=== PATIENT | female | born 1955 | race Caucasian/White ===

== ENCOUNTER → 2016-11-06 | Outpatient (CLI) | payer BC ==
--- NOTE | 2016-11-07 11:42 | MG ---
HISTORY: SCREENING Comparison: 10/26/14 FINDINGS: Bilateral CC and MLO projections of the right and left breast were obtained. Heterogeneously dense fibroglandular tissue is seen to be present without significant interval change. No suspicious arch itectural distortion, mass or clustered microcalcifications can be observed to suggest malignancy. No skin thickening or nipple retraction is appreciated. No pathological lymphadenopathy can be darien ntified. Benign-appearing calcifications are noted within the right and left breast. IMPRESSION: NO RADIOGRAPHIC EVIDENCE OF MALIGNANCY. ACR CATEGORY 2 - benign findings. FOLLOW-UP EXAM 1 YEAR. Diagnostic CAD was utilized and reviewed. * 0 (ZERO) - ASSESSMENT INCOMPLETE; ADDITIONAL IMAGING IS NEEDED. * 1/1 (ONE) - NEGATIVE. * 2/II (TWO) - BENIGN FINDINGS. * 3/III (THREE) - PROBABLY BENIGN FINDING; SHORT INTERVAL FOLLOW-UP SUGGESTED. * 4/IV (FOUR) - SUSPICIOUS ABNORMALITY; BIOPSY SHOULD BE CONSIDERED. * 5/V (FIVE) - HIGHLY SUSPICIOUS OF MALIGNANCY; BIOPSY SHOULD BE PERFORMED. A NEGATIVE X-RAY REPORT SHOULD NOT DELAY BIOPSY IF A DOMINANT OR CLINICALLY SUSPICIOUS MASS IS PRESENT; 4 TO 8 PERCENT OF CANCERS ARE NOT IDENTIFIED BY X-RAY. A NEG ATIVE REPORT MAY REINFORCE THE CLINICAL IMPRESSION. ADENOSIS AND DENSE BREASTS MAY OBSCURE AN UNDER LYING NEOPLASM. Reported By:
== END ==
LOC: RAD 13:41
PROVIDERS: ATTEND Nurse Practitioner Family
DX: Z12.31 Encounter for screening mammogram for malignant neoplasm of breast (principal)
CPT/HCPCS: 77067

== ENCOUNTER 2021-06-13 14:40 | Inpatient (IN) ==
--- NOTE | 2021-06-13 14:52 | DR.SOBA ---
HPI Time Seen Time Seen by Provider: 06/13/21 14:59 Complaints Chief Complaint Doctors Comments: 66 y/o female presents not feeling well for several days. Has a h/o multiple myeloma, diagnosed 2 years ago. Had a bone marrow transfusion last year. Was doing well for a bit. Going downhill last few weeks. Reportedly in kidney failure, sees strip machine tender at [place], not on dialysis. Has a cough, productive, treated with azithromycin. + short of breath with exertion. No fever, cold frequently. + h/o anemia. Having generalized weakness. No bowel/bladder complaints. COVID-19 Coronavirus risk:travel/contact w/high risk person: No Has patient experienced Coronavirus symptoms: Yes Coronavirus symptoms experienced: Coughing Reviewed Nurses Notes Reviewed: Yes Source History Provided: Patient and Family Member Mode of Arrival Mode of Arrival: Wheelchair PMH Travel Risk Coronavirus risk:travel/contact w/high risk person: No Has patient experienced Coronavirus symptoms: Yes Coronavirus symptoms experienced: Coughing ROS Review of Systems Constitutional: Malaise and Weakness Eyes: No Symptoms Reported ENTM: No Symptoms Reported Respiratoy: Productive Cough and Short of Breath Cardiovascular: No Symptoms Reported Gastrointestinal/Abdominal: No Symptoms Reported Genitourinary: No Symptoms Reported Neurological: Weakness Musculoskeletal: No Symptoms Reported Integumentary: No Symptoms Reported Hematologic/Lymphatic: No Symptoms Reported Psychiatric: No Symptoms Reported All Other Systems: Reviewed and Negative PE Vital Signs Vitals: Temperature 97.6 F Pulse Rate [Left Radial] 68 Pulse Rate 66 Respiratory Rate 21 Blood Pressure [Left Arm] 105/46 Blood Pressure 110/52 O2 Sat by Pulse Oximetry 91 General Limitations: No Limitations General Appearance: Alert and In No Apparent Distress Head Head Exam: Normal Inspection Eyes Eye exam: Normal Appearance and PERRL ENT ENT Exam: Normal Exam Neck Neck Exam: Normal Inspection and Full ROM Chest Chest Inspection: Normal Inspection Respiratory Respiratory Exam: negative Accessory Muscle Use and Respiratory Distress Respiratory Exam: Right: Rales (base) Cardiovascular Cardiovascular Exam: Regular Rate, Normal Rhythm and Normal Heart Sounds Abdominal Exam Abdominal Exam: Normal Inspection, Normal Bowel Sounds and Soft; negative Tenderness Extremities Extremities Exam: Normal Inspection and Full ROM; negative Tenderness and Edema Back Back Exam: Normal Inspection Neurologic Neurological Exam: Alert, Oriented X3 and CN II-XII Intact; negative Motor Sensory Deficit Psychiatric Psychiatric Exam: Normal Affect Skin Skin Exam: Warm and Dry MDM Differential Diagnosis Differential Diagnosis: Bronchitis, CHF, Mycardial Infarction and Pneumonia Differential Diagnosis Comment:: anemia, kidney disease COURSE Treatment Treatment: 66 y/o female with worsening weakness, exertional dyspnea, h/o multiple myeloma, anemia. W/u initiated. 1541 - + CXR c/w pneumonia on the R side. Given IV Rocephin. Covid/Flu swabs obtained, will plan on admission. 1744 - discussed with Dr Encsio, accepts the admission. Will add Invanz for antibiotic coverage, decreased dosing due to renal disease. ROR Labs Reviewed Laboratory Results Reviewed?: Yes Result Diagrams: 06/13/21 16:15 06/13/21 14:55 Laboratory: WBC 1.0 X10^3/uL (3.6-10.0) L* 06/13/21 16:15 RBC 1.92 X10^6/uL (3.5-5.4) L 06/13/21 16:15 Hgb 6.9 g/dL (12.0-16.0) L* 06/13/21 16:15 Hct 20.2 % (36.0-47.0) L 06/13/21 16:15 MCV 104.9 fL (80.0-100.0) H 06/13/21 16:15 MCH 35.7 pg (27.0-34.0) H 06/13/21 16:15 MCHC 34.0 g/dL (33.0-35.0) 06/13/21 16:15 RDW 19.3 % (11.6-16.5) H 06/13/21 16:15 Plt Count 26 X10^3/uL (150.0-450.0) L 06/13/21 16:15 Plt Count Comment Decreased (ADEQUATE) A 06/13/21 16:15 MPV 9.3 fL (7.4-11.0) 06/13/21 16:15 Neut % (Auto) 46.4 % (42.0-75.0) 06/13/21 16:15 Lymph % (Auto) 49.5 % (21.0-51.0) 06/13/21 16:15 [place] % (Auto) 3.7 % (0.0-13.0) 06/13/21 16:15 Eos % (Auto) 0.0 % (0.9-2.9) L 06/13/21 16:15 Baso % (Auto) 0.4 % (0.2-1.0) 06/13/21 16:15 Neut # (Auto) 0.5 x10^3/uL (2.2-4.8) L 06/13/21 16:15 Lymph # (Auto) 0.5 X10^3/uL (1.3-2.9) L 06/13/21 16:15 [place] # (Auto) 0 x10^3/uL (0.3-0.8) L 06/13/21 16:15 Eos # (Auto) 0.0 x10^3/uL (0.0-0.2) 06/13/21 16:15 Baso # (Auto) 0.0 X10^3/uL (0.0-0.1) 06/13/21 16:15 Absolute Nucleated RBC 0.1 /100WBC 06/13/21 16:15 Plt Morphology Comment Normal (NORMAL) 06/13/21 16:15 RBC Morphology Normal (NORMAL) 06/13/21 16:15 Sample Site Rb 06/13/21 15:31 ABG pH 7.390 (7.35-7.45) 06/13/21 15:31 ABG pCO2 27.0 mmHg (35.0-45.0) L 06/13/21 15:31 ABG pO2 59.0 mmHg (80.0-100.0) L 06/13/21 15:31 ABG HCO3 16.3 mmol/L (22-26) L* 06/13/21 15:31 ABG O2 Saturation 90.0 % (90-100) 06/13/21 15:31 ABG Base Excess -7.2 mmol/L (-2.0-2.0) L 06/13/21 15:31 Gamaliel Test Na 06/13/21 15:31 A-a Gradient 135.0 mmHg 06/13/21 15:31 FiO2 32.0 06/13/21 15:31 Blood Gas Comments Humberto well cb 06/13/21 15:31 Sodium 134 mmol/L (136-145) L 06/13/21 14:55 Corrected Sodium 135 mmol/L (136-145) L 06/13/21 14:55 Potassium 4.1 mmol/L (3.5-5.1) 06/13/21 14:55 Chloride 102 mmol/L (98-107) 06/13/21 14:55 Carbon Dioxide 18.3 mmol/L (21-32) L 06/13/21 14:55 BUN 37 mg/dL (7-18) H 06/13/21 14:55 Creatinine 4.68 mg/dL (0.55-1.02) H 06/13/21 14:55 Est GFR (MDRD) Af Amer 12 (>60) L 06/13/21 14:55 Est GFR (MDRD) Non-Af 10 (>60) L 06/13/21 14:55 Glucose 127 mg/dL (65-99) H 06/13/21 14:55 Lactic Acid 3.1 mmol/L (0.4-2.0) H 06/13/21 14:55 Calcium 7.3 mg/dL (8.5-10.1) L 06/13/21 14:55 Corrected Calcium 8.5 mg/dL (8.5-10.1) 06/13/21 14:55 Total Bilirubin 0.30 mg/dL (0.2-1.0) 06/13/21 14:55 AST 29 Units/L (15-37) 06/13/21 14:55 ALT 15 Units/L (12-78) 06/13/21 14:55 Alkaline Phosphatase 118 Units/L (46-116) H 06/13/21 14:55 Creatine Kinase 172 Units/L (26-192) 06/13/21 14:55 CK-MB (CK-2) 1.9 ng/mL (0-4.0) 06/13/21 14:55 CK/CKMB % Calc 1.1 % (<4) 06/13/21 14:55 Troponin I 0.02 ng/mL (0-1.5) 06/13/21 14:55 Total Protein 6.1 g/dL (6.4-8.2) L 06/13/21 14:55 Albumin 2.5 g/dL (3.4-5.0) L 06/13/21 14:55 Globulin 3.6 g/dL (2.5-4.5) 06/13/21 14:55 Albumin/Globulin Ratio 0.7 Ratio (1.1-2.1) L 06/13/21 14:55 SARS-CoV-2 (PCR) Negative (NEGATIVE) 06/13/21 16:02 Influenza Type A (PCR) Negative (NEGATIVE) 06/13/21 16:02 Influenza Type B (PCR) Negative (NEGATIVE) 06/13/21 16:02 RSV (PCR) Negative (NEGATIVE) 06/13/21 16:02 XRAY XRAY Interpreted by: Both X-ray Results: + R sided increased markings c/w pneumonia EKG Rate: 68 [place]: Normal Rhythm: NSR Block: None Hypertrophy: None ST: Normal Opioid Opioid Risk Tool Age (Brando box if 16-45): No History of Preadolescent Sexual Abuse: No Total: 0 Total Score Risk Category: Low Risk Copyright: Emanuel MENDES predicting aberrant behaviors Diagnosis Discharge Problem: Pancytopenia Pneumonia involving right lung Qualifiers: Pneumonia type: due to unspecified organism Lung location: unspecified part of lung Qualified Code(s): J18.9 - Pneumonia, unspecified organism Chronic kidney disease Qualifiers: Chronic kidney disease stage: unspecified stage Qualified Code(s): N18.9 - Chronic kidney disease, unspecified
[2021-06-13 15:18] LABS: BASOPHILS % (AUTO) 0.4 % (0.2-1.0); HEMATOCRIT 20.2 % (36.0-47.0); PLATELET COUNT 26 X10^3/uL (150.0-450.0)
--- NOTE | 2021-06-13 15:23 | RAD ---
HISTORYSOB renal disease myelomaSTUDYAP chestCOMPARISONNoneFINDINGSThe heart is not significantly enlarged. There are areas of patchy airspace involvement, right lung greater than left. No discrete mass, pleural fluid or extrapulmonary air collection is noted.IMPRESSIONPatchy areas of pulmonary involvement are consistent with pneumonia, less likely asymmetric pulmonary edema. Follow-up suggested.Electronically signed by: JULIA KONG (Jun 13, 2021 15:21:18)
[2021-06-13 15:36] LABS: ABG BASE EXCESS -7.2 mmol/L (-2.0-2.0); ABG HCO3 16.3 mmol/L (22-26)
[2021-06-13] MEDS ORDERED: ROCEPHIN 1 GRAM IV PREMIX 1 G/50 ML IV.SOLN. IV ONE ×2 (15:39→16:12)
[2021-06-13 15:43] LABS: LACTIC ACID 3.1 mmol/L (0.4-2.0)
[2021-06-13 15:50] LABS: ALBUMIN 2.5 g/dL (3.4-5.0); CALCIUM 7.3 mg/dL (8.5-10.1); CARBON DIOXIDE 18.3 mmol/L (21-32); CKMB % 1.1 % (<4); COR CA(FOR HYPOALB) 8.5 mg/dL (8.5-10.1); CREATINE KINASE MB 1.9 ng/mL (0-4.0); CREATININE 4.68 mg/dL (0.55-1.02); TOTAL PROTEIN 6.1 g/dL (6.4-8.2); TROPONIN I 0.02 ng/mL (0-1.5)
[2021-06-13 15:56] LABS: LYMPHOCYTES # (AUTO) 0.5 X10^3/uL (1.3-2.9); LYMPHOCYTES % (AUTO) 49.5 % (21.0-51.0); MEAN CORPUSCULAR HEMOGLOBIN 35.7 pg (27.0-34.0); MEAN CORPUSCULAR VOLUME 104.9 fL (80.0-100.0); MEAN PLATELET VOLUME 9.3 fL (7.4-11.0); MONOCYTES # (AUTO) 0 x10^3/uL (0.3-0.8); MONOCYTES % (AUTO) 3.7 % (0.0-13.0); NEUTROPHILS # (AUTO) 0.5 x10^3/uL (2.2-4.8); NEUTROPHILS % (AUTO) 46.4 % (42.0-75.0); RED BLOOD COUNT 1.92 X10^6/uL (3.5-5.4); RED CELL DISTRIBUTION WIDTH 19.3 % (11.6-16.5)
[2021-06-13 16:33] LABS: HEMOGLOBIN 6.9 g/dL (12.0-16.0)
[2021-06-13 16:34] LABS: PLATELET MORPHOLOGY COMMENT NORMAL (NORMAL)
[2021-06-13] MEDS ORDERED: INVANZ INJ 1 GM VIAL 0.5 GM in NS 50 ML IV 50 ML IV ONE (18:02)
[2021-06-13] MEDS ORDERED: INVANZ INJ 1 GM VIAL ONE (19:14)
[2021-06-13] MEDS ORDERED: NS 50 ML IV 50 ML IV ONE (19:14)
[2021-06-13] MEDS: DUONEB 0.5 MG/3 MG (3 mL) NEB SCH (23:25)
[2021-06-13] MEDS: PULMICORT NEB TX 0.5 MG NEB SCH (23:25)
[2021-06-14] MEDS ORDERED: XANAX PO PRN (02:18)
[2021-06-14] MEDS ORDERED: TUSSIONEX PENNKINETIC SUSP PO PRN (02:18)
[2021-06-14 02:30] VITALS: BMI 28.3
[2021-06-14] MEDS: NexIUM PO SCH ×3 (03:18→20:35)
[2021-06-14] MEDS: NS 1,000 ML IV 1,000 ML IV SCH ×2 (03:18→15:34)
[2021-06-14 06:02] LABS: BASOPHILS % (AUTO) 0.7 % (0.2-1.0); LYMPHOCYTES # (AUTO) 0.3 X10^3/uL (1.3-2.9); LYMPHOCYTES % (AUTO) 38.1 % (21.0-51.0); MEAN CORPUSCULAR HEMOGLOBIN 35.7 pg (27.0-34.0); MEAN CORPUSCULAR HGB CONC 34.5 g/dL (33.0-35.0); MEAN CORPUSCULAR VOLUME 103.3 fL (80.0-100.0); MEAN PLATELET VOLUME 9.8 fL (7.4-11.0); MONOCYTES # (AUTO) 0 x10^3/uL (0.3-0.8); MONOCYTES % (AUTO) 6.5 % (0.0-13.0); NEUTROPHILS # (AUTO) 0.4 x10^3/uL (2.2-4.8); NEUTROPHILS % (AUTO) 54.7 % (42.0-75.0); PLATELET COUNT 22 X10^3/uL (150.0-450.0); RED BLOOD COUNT 1.56 X10^6/uL (3.5-5.4)
[2021-06-14 06:08] LABS: WHITE BLOOD COUNT 0.7 X10^3/uL (3.6-10.0)
[2021-06-14 06:09] LABS: HEMATOCRIT 16.1 % (36.0-47.0); HEMOGLOBIN 5.6 g/dL (12.0-16.0)
[2021-06-14 06:31] LABS: ALANINE AMINOTRANSFERASE 15 Units/L (12-78); ALBUMIN 2.1 g/dL (3.4-5.0); ALKALINE PHOSPHATASE 95 Units/L (46-116); ASPARTATE AMINO TRANSFERASE 36 Units/L (15-37); BLOOD UREA NITROGEN 36 mg/dL (7-18); CALCIUM 7.1 mg/dL (8.5-10.1); CARBON DIOXIDE 18.5 mmol/L (21-32); CHLORIDE 103 mmol/L (98-107); COR CA(FOR HYPOALB) 8.6 mg/dL (8.5-10.1); SODIUM 135 mmol/L (136-145); TOTAL PROTEIN 5.4 g/dL (6.4-8.2); eGFR NON BLACK RACES 10 (>60)
[2021-06-14 06:58] LABS: BAND NEUTROPHILS % 13 % (0-10)
[2021-06-14 06:59] LABS: PLATELET MORPHOLOGY COMMENT NORMAL (NORMAL)
[2021-06-14] MEDS ORDERED: SPIKE MINIBAG IV SCH (09:00)
[2021-06-14] MEDS ORDERED: INVANZ IV SCH (09:00)
[2021-06-14] MEDS ORDERED: NS IV SCH (09:00)
[2021-06-14] MEDS: PULMICORT NEB TX 0.5 MG NEB SCH ×2 (09:12→21:22)
[2021-06-14] MEDS: DUONEB 0.5 MG/3 MG (3 mL) NEB SCH ×4 (09:12→21:22)
[2021-06-14] MEDS: NORVASC TAB 5 MG PO SCH (09:22)
[2021-06-14] MEDS: WELLBUTRIN XL 300 MG (DAILY) PO SCH (09:23)
[2021-06-14] MEDS: TOPROL XL PO SCH (09:23)
[2021-06-14] MEDS: ROCEPHIN VIAL 1 GRAM 1 G in NS 100 ML IV + SPIKE MINIBAG* 100 ML IV SCH (09:23)
--- NOTE | 2021-06-14 09:34 | RAD ---
HISTORYPneumoniaSTUDYAP [id number] ring minor technical differences there is no change in extent or distribution of bilateral interstitial and airspace involvement. Heart size is similar. No additional consolidation, pneumothorax or pleural fluid.IMPRESSIONStable appearance of bilateral pneumonia.Electronically signed by: JULIA KONG (Jun 14, 2021 09:33:16)
[2021-06-14 10:48] LABS: FREE T4 (FREE THYROXINE) 1.01 ng/dL (0.76-1.46); TSH (3RD GENERATION) 0.345 uIU/mL (0.358-3.74)
[2021-06-14 11:39] LABS: BILIRUBIN,URINE NEGATIVE (NEGATIVE); BLOOD/HEMOGLOBIN,URINE 4+ (NEGATIVE); GLUCOSE, URINE NEGATIVE (NEGATIVE); KETONES,URINE NEGATIVE (NEGATIVE); LEUKOCYTE ESTERASE ,URINE NEGATIVE (NEGATIVE); NITRITES,URINE NEGATIVE (NEGATIVE); PROTEIN,URINE 3+ (NEGATIVE); UROBILINOGEN,URINE NORMAL (NORMAL)
[2021-06-14 11:49] LABS: APPEARANCE,URINE CLEAR (CLEAR); BACTERIA,URINE TRACE /HPF (NEGATIVE); COLOR,URINE YELLOW (YELLOW); RBC,URINE NONE SEEN /HPF (0-3); SQUAMOUS EPITHELIAL CELL,UR FEW /HPF (NEGATIVE)
[2021-06-14] MEDS: TYLENOL 325 MG TAB PO PRN ×2 (12:41→20:35)
[2021-06-14 13:43] LABS: ABG BASE EXCESS -5.6 mmol/L (-2.0-2.0)
[2021-06-14 13:44] LABS: ABG HCO3 17.5 mmol/L (22-26)
--- NOTE | 2021-06-14 14:10 | CT ---
HISTORYSOB, PNEUMONIA, PANCYTOPENIA hypertension. Renal disease. Multiple myeloma. Stem-cell transplant.STUDYCHEST W/O CONCOMPARISONChest radiograph 06/14/[address] abdomen and pelvis 12/12/2018, report only no imagesTECHNIQUEMultiple CT axial images of the chest were obtained without IV contrast. Coronal and sagittal images were reconstructed. Dose reduction techniques included Automated Exposure Control (AEC) and adjustment of mA and kV.FINDINGSThe heart is normal in size. Atherosclerotic calcifications are present in the coronary arteries. The pulmonary artery and aorta have a normal caliber. No mediastinal mass or significant lymphadenopathy.The thyroid has a normal size and configuration. No axillary mass or significant axillary lymphadenopathy is identified.Bilateral airspace opacity is present consistent with pneumonia. Involves all 5 lobes to varying degrees. No significant pleural effusion.Calcified gallstones are present with no inflammation. Small hiatal hernia measures about 3 cm.Degenerative changes are present in the spine.IMPRESSION1. Bilateral pneumoniaElectronically signed by: Javier Jenkins (Jun 14, 2021 14:08:45)
[2021-06-14] MEDS ORDERED: NS 100 ML IV 100 ML ONE (19:26)
[2021-06-14] MEDS: INVANZ INJ 1 GM VIAL 0.5 GM in NS 50 ML IV 50 ML IV SCH (20:38)
[2021-06-14] MEDS ORDERED: INVANZ INJ 1 GM VIAL 0.5 GM in NS 50 ML IV 50 ML IV SCH (21:00)
--- NOTE | 2021-06-15 00:27 | DR.H&P ---
H&P - History & Physical for Day of: H&P Date: 06/13/21 - Chief Complaint Chief Complaint: sob - Past Medical History Past Medical History: Anxiety, GERD, Hypertension, Renal Disease - Past Surgical History Surgical History: Other - Family History Family Medical History: Hypertension - Social History Does patient currently use any type of tobacco product: No Have you used tobacco products in the last 12 months: No Type of Tobacco Use: None Does any household member use tobacco: No Alcohol Use: None Drug Use: None - Medications Home Medications: No Known Drug Allergies Allergy (Verified 06/13/21 14:51) CONTINUE taking the following medications alprazolam 1 mg PO BID PRN 06/13/21 [History] amlodipine 5 mg PO DAILY 06/13/21 [History] budesonide 0.25 mg INHALATION BID PRN 06/13/21 [History] bupropion HCl 300 mg PO DAILY 06/13/21 [History] calcitriol 0.25 mcg PO DAILY 06/13/21 [History] esomeprazole magnesium 40 mg PO BID 06/13/21 [History] hydrocodone-chlorpheniramine 5 ml PO BID PRN 06/13/21 [History] metoprolol succinate 50 mg PO DAILY 06/13/21 [History] - Review of Systems Constitutional: See HPI Eyes: See HPI ENT: See HPI Respiratory: See HPI Cardiovascular: See HPI Gastrointestinal: See HPI Genitourinary: See HPI Musculoskeletal: See HPI Skin: See HPI Neurological: See HPI - Physical Exam Vital Signs: Temperature 98.5 F Pulse Rate [Left Radial] 83 Pulse Rate 70 Respiratory Rate 20 Blood Pressure [Right Arm] 129/58 Blood Pressure [Left Arm] 105/46 Blood Pressure 113/57 O2 Sat by Pulse Oximetry 91 Oriented: Normal, Time, Person, Place Eyes: Normal Ear: Normal Nose: Normal Throat: Normal Respiratory: Rhonchi Throughout Cardiovascular: Normal : Normal Auscultation: Bowel Sounds: Normal Palpation: Normal Tenderness: Normal Skin: Decreased Turgur Musculoskeletal: Instability Psychiatric: Normal Mood Description: Calm Affect: Normal Speech Pattern: Clear, Appropriate - Assessment/Plan (1) Acute on chronic renal failure Status: Acute (2) Bilateral pneumonia Status: Acute Plan: SUPPLEMENAL OXYGEN. IV ABX. CT CHEST WO. ABG. CULTURES PENDNG (3) Hypoxia Status: Acute (4) Multiple myeloma Status: Acute (5) Pancytopenia Status: Acute (6) Acute anemia Status: Acute Plan: PATIENT IS PENDING TRANSFUSION OF RADIATED BLOOD DUE TO MEDICAL HISTORY. MONITOR LABS. SEE EMR - Allergies Allergies/Adverse Reactions: Allergies Allergy/AdvReac Type Severity Reaction Status Date / Time No Known Drug Allergies Allergy Verified 06/13/21 14:51
--- NOTE | 2021-06-15 00:35 | PCM.PROG ---
Progress Note - Progress Note for Day of Date of Exam: 06/14/21 - Subjective Subjective: PATIENT IS A 66 YEAR OLD ADMITTED DUE TO BILATERAL PNEUMONIA, ACUTE ON CHRONIC RENAL FAILURE, AND ACUTE ANEMIA. PATIENT REQUIRES RADIATED BLOOD WHICH HAS BEEN ORDERED PENDING DELIVERY. H MULTIPLE MYELOMA. PATIENT NOT ON DIALYSIS. FOLLOWS UP AT [place]. PATIENT IS PENDING TRANSFER TO [place] DUE TO MULTIPLE COMPLICATED MEDICAL HISTORY. - Past Medical Family Social History Past Med/Fam/Surg Hx: No changes since H&P Allergies: Allergies No Known Drug Allergies Allergy (Verified 06/13/21 14:51) - Review of Systems ROS: No change since H&P - Vital Signs and I&O's Vital Signs: Temperature 98.5 F Pulse Rate [Left Radial] 83 Pulse Rate 70 Respiratory Rate 20 Blood Pressure [Right Arm] 129/58 Blood Pressure [Left Arm] 105/46 Blood Pressure 113/57 O2 Sat by Pulse Oximetry 91 Intake and Output: Intake & Output 06/12/21 06/13/21 06/14/21 06/15/21 23:59 23:59 23:59 23:59 Intake Total 240 / 240 1470 / 1470 Output Total Balance 240 / 240 1469 / 1469 - Physical Exam Oriented: Normal, Time, Person, Place Eyes: Normal Ear: Normal Nose: Normal Throat: Normal Respiratory: Generalized, Rhonchi Cardiovascular: Normal : Normal Auscultation: Bowel Sounds: Normal Palpation: Normal Tenderness: Normal Skin: Decreased Turgur Musculoskeletal: Instability Psychiatric: Normal Mood Description: Calm Affect: Normal Speech Pattern: Clear, Appropriate - Laboratory and Diagnostics Result Diagrams: 06/14/21 05:26 06/14/21 05:26 Labs: Laboratory WBC 0.7 X10^3/uL (3.6-10.0) L* 06/14/21 05:26 RBC 1.56 X10^6/uL (3.5-5.4) L 06/14/21 05:26 Hgb 5.6 g/dL (12.0-16.0) L* 06/14/21 05:26 Hct 16.1 % (36.0-47.0) L* 06/14/21 05:26 MCV 103.3 fL (80.0-100.0) H 06/14/21 05:26 MCH 35.7 pg (27.0-34.0) H 06/14/21 05:26 MCHC 34.5 g/dL (33.0-35.0) 06/14/21 05:26 RDW 19.0 % (11.6-16.5) H 06/14/21 05:26 Plt Count 22 X10^3/uL (150.0-450.0) L 06/14/21 05:26 Plt Count Comment Decreased (ADEQUATE) A 06/14/21 05:26 MPV 9.8 fL (7.4-11.0) 06/14/21 05:26 Neut % (Auto) 54.7 % (42.0-75.0) 06/14/21 05:26 Lymph % (Auto) 38.1 % (21.0-51.0) 06/14/21 05:26 Sebastian % (Auto) 6.5 % (0.0-13.0) 06/14/21 05:26 Eos % (Auto) 0.0 % (0.9-2.9) L 06/14/21 05:26 Baso % (Auto) 0.7 % (0.2-1.0) 06/14/21 05:26 Neut # (Auto) 0.4 x10^3/uL (2.2-4.8) L 06/14/21 05:26 Lymph # (Auto) 0.3 X10^3/uL (1.3-2.9) L 06/14/21 05:26 Sebastian # (Auto) 0 x10^3/uL (0.3-0.8) L 06/14/21 05:26 Eos # (Auto) 0.0 x10^3/uL (0.0-0.2) 06/14/21 05:26 Baso # (Auto) 0.0 X10^3/uL (0.0-0.1) 06/14/21 05:26 Absolute Nucleated RBC 0.7 /100WBC 06/14/21 05:26 Total Counted 100 06/14/21 05:26 Neutrophils % (Manual) 39 % (39-76) 06/14/21 05:26 Band Neutrophils % 13 % (0-10) H 06/14/21 05:26 Lymphocytes % (Manual) 40 % (13-43) 06/14/21 05:26 Monocytes % (Manual) 8 % (4-9) 06/14/21 05:26 Atypical Lymphocytes Few noted 06/14/21 05:26 Plt Morphology Comment Normal (NORMAL) 06/14/21 05:26 RBC Morphology Normal (NORMAL) 06/14/21 05:26 Sample Site [facility] 06/14/21 13:34 ABG pH 7.420 (7.35-7.45) 06/14/21 13:34 ABG pCO2 27.0 mmHg (35.0-45.0) L 06/14/21 13:34 ABG pO2 43.0 mmHg (80.0-100.0) L* 06/14/21 13:34 ABG HCO3 17.5 mmol/L (22-26) L* 06/14/21 13:34 ABG O2 Saturation 80.0 % (90-100) L* 06/14/21 13:34 ABG Base Excess -5.6 mmol/L (-2.0-2.0) L 06/14/21 13:34 Gamaliel Test N/a 06/14/21 13:34 A-a Gradient 73.0 mmHg 06/14/21 13:34 FiO2 21.0 06/14/21 13:34 Blood Gas Comments Pt michelle well elj 06/14/21 13:34 Sodium 135 mmol/L (136-145) L 06/14/21 05:26 Corrected Sodium TNP 06/14/21 05:26 Potassium 3.6 mmol/L (3.5-5.1) 06/14/21 05:26 Chloride 103 mmol/L (98-107) 06/14/21 05:26 Carbon Dioxide 18.5 mmol/L (21-32) L 06/14/21 05:26 BUN 36 mg/dL (7-18) H 06/14/21 05:26 Creatinine 4.50 mg/dL (0.55-1.02) H 06/14/21 05:26 Est GFR (MDRD) Af Amer 13 (>60) L 06/14/21 05:26 Est GFR (MDRD) Non-Af 10 (>60) L 06/14/21 05:26 Glucose 77 mg/dL (65-99) 06/14/21 05:26 Lactic Acid 0.7 mmol/L (0.4-2.0) 06/14/21 10:05 Calcium 7.1 mg/dL (8.5-10.1) L 06/14/21 05:26 Corrected Calcium 8.6 mg/dL (8.5-10.1) 06/14/21 05:26 Iron 89 ug/dL (50-175) 06/14/21 05:26 Transferrin 185 mg/dL (202-364) L 06/14/21 05:26 Ferritin 877 ng/mL (8-252) H 06/14/21 05:26 Total Bilirubin 0.20 mg/dL (0.2-1.0) 06/14/21 05:26 AST 36 Units/L (15-37) 06/14/21 05:26 ALT 15 Units/L (12-78) 06/14/21 05:26 Alkaline Phosphatase 95 Units/L (46-116) 06/14/21 05:26 Creatine Kinase 172 Units/L (26-192) 06/13/21 14:55 CK-MB (CK-2) 1.9 ng/mL (0-4.0) 06/13/21 14:55 CK/CKMB % Calc 1.1 % (<4) 06/13/21 14:55 Troponin I 0.02 ng/mL (0-1.5) 06/13/21 14:55 Total Protein 5.4 g/dL (6.4-8.2) L 06/14/21 05:26 Albumin 2.1 g/dL (3.4-5.0) L 06/14/21 05:26 Globulin 3.3 g/dL (2.5-4.5) 06/14/21 05:26 Albumin/Globulin Ratio 0.6 Ratio (1.1-2.1) L 06/14/21 05:26 Vitamin B12 836 pg/mL (193-986) 06/14/21 05:26 Folate 9.0 ng/mL (>8.6) 06/14/21 05:26 Free T4 1.01 ng/dL (0.76-1.46) 06/14/21 05:26 TSH 3rd Generation 0.345 uIU/mL (0.358-3.74) L 06/14/21 05:26 Specimen Type Clean catch urine 06/14/21 11:30 Urine Color Yellow (YELLOW) 06/14/21 11:30 Urine Appearance Clear (CLEAR) 06/14/21 11:30 Urine pH 5.0 (5.0 - 8.0) 06/14/21 11:30 Ur Specific [place] 1.015 (1.000-1.030) 06/14/21 11:30 Urine Protein 3+ (NEGATIVE) 06/14/21 11:30 Urine Glucose (UA) Negative (NEGATIVE) 06/14/21 11:30 Urine Ketones Negative (NEGATIVE) 06/14/21 11:30 Urine Occult Blood 4+ (NEGATIVE) 06/14/21 11:30 Urine Nitrite Negative (NEGATIVE) 06/14/21 11:30 Urine Bilirubin Negative (NEGATIVE) 06/14/21 11:30 Urine Urobilinogen Normal (NORMAL) 06/14/21 11:30 Ur Leukocyte Esterase Negative (NEGATIVE) 06/14/21 11:30 Urine RBC None seen /HPF (0-3) 06/14/21 11:30 Urine WBC 0-2 /HPF (0-5) 06/14/21 11:30 Ur Squamous Epith Cells Few /HPF (NEGATIVE) 06/14/21 11:30 Urine Bacteria Trace /HPF (NEGATIVE) 06/14/21 11:30 Ur Culture Indicated? No/not indicated 06/14/21 11:30 SARS-CoV-2 (PCR) Negative (NEGATIVE) 06/13/21 16:02 Influenza Type A (PCR) Negative (NEGATIVE) 06/13/21 16:02 Influenza Type B (PCR) Negative (NEGATIVE) 06/13/21 16:02 RSV (PCR) Negative (NEGATIVE) 06/13/21 16:02 Blood Type A POSITIVE 06/14/21 10:05 Antibody Screen Negative 06/14/21 10:05 Crossmatch See Detail 06/14/21 10:05 - Plan (1) Acute on chronic renal failure Status: Acute Plan: IV FLUIDS. MINMALLY IMPROVED (2) Bilateral pneumonia Status: Acute Plan: SUPPLEMENAL OXYGEN. IV ABX. CT CHEST WO. ABG. CULTURES PENDNG (3) Hypoxia Status: Acute (4) Multiple myeloma Status: Acute (5) Pancytopenia Status: Acute (6) Acute anemia Status: Acute Plan: PATIENT IS PENDING TRANSFUSION OF RADIATED BLOOD DUE TO MEDICAL HISTORY. MONITOR LABS. SEE EMR
[2021-06-15] MEDS ORDERED: NS 100 ML IV 100 ML ONE (01:37)
[2021-06-15] MEDS: TYLENOL 325 MG TAB PO PRN ×3 (02:32→20:44)
[2021-06-15] MEDS ORDERED: DUONEB 0.5 MG/3 MG (3 mL) NEB ONE (05:08)
--- NOTE | 2021-06-15 05:55 | RAD ---
PROCEDURE: Chest X-ray 1 View .HISTORY: HYPOXIA .TECHNIQUE: AP view .COMPARISON: 06/14/2021.TECHNICAL QUALITY: Satisfactory .FINDINGS:Unremarkable cardio mediastinal silhouette and normal central vascularity.Consolidation both lung bases and right upper lobe consistent with pneumonia similar to previous study with no pleural fluid or pneumothorax.IMPRESSION:Unchanged bilateral pneumonia.Electronically signed by: Pablo Dunham (Jun 15, 2021 05:53:32)
[2021-06-15] MEDS: NS 1,000 ML IV 1,000 ML IV SCH ×2 (05:58→16:25)
[2021-06-15 06:53] LABS: BASOPHILS % (AUTO) 0.5 % (0.2-1.0); EOSINOPHILS % (AUTO) 0.2 % (0.9-2.9); HEMATOCRIT 22.9 % (36.0-47.0); HEMOGLOBIN 7.8 g/dL (12.0-16.0); LYMPHOCYTES # (AUTO) 0.3 X10^3/uL (1.3-2.9); LYMPHOCYTES % (AUTO) 19.6 % (21.0-51.0); MEAN CORPUSCULAR HEMOGLOBIN 32.5 pg (27.0-34.0); MEAN CORPUSCULAR HGB CONC 34.3 g/dL (33.0-35.0); MEAN CORPUSCULAR VOLUME 94.9 fL (80.0-100.0); MEAN PLATELET VOLUME 9.2 fL (7.4-11.0); MONOCYTES # (AUTO) 0 x10^3/uL (0.3-0.8); MONOCYTES % (AUTO) 3.7 % (0.0-13.0); RED BLOOD COUNT 2.41 X10^6/uL (3.5-5.4); RED CELL DISTRIBUTION WIDTH 21.6 % (11.6-16.5)
[2021-06-15 06:57] LABS: WHITE BLOOD COUNT 1.3 X10^3/uL (3.6-10.0)
[2021-06-15 06:58] LABS: PLATELET COUNT 23 X10^3/uL (150.0-450.0)
[2021-06-15 07:04] LABS: ALANINE AMINOTRANSFERASE 25 Units/L (12-78); ALBUMIN 1.9 g/dL (3.4-5.0); ALKALINE PHOSPHATASE 99 Units/L (46-116); ASPARTATE AMINO TRANSFERASE 70 Units/L (15-37); BLOOD UREA NITROGEN 29 mg/dL (7-18); CALCIUM 6.9 mg/dL (8.5-10.1); CARBON DIOXIDE 17.5 mmol/L (21-32); CHLORIDE 107 mmol/L (98-107); COR CA(FOR HYPOALB) 8.6 mg/dL (8.5-10.1); CREATININE 4.24 mg/dL (0.55-1.02); SODIUM 137 mmol/L (136-145); TOTAL PROTEIN 5.2 g/dL (6.4-8.2); eGFR NON BLACK RACES 11 (>60)
[2021-06-15 07:16] LABS: ANISOCYTOSIS 1+; PLATELET MORPHOLOGY COMMENT NORMAL (NORMAL)
[2021-06-15] MEDS: DUONEB 0.5 MG/3 MG (3 mL) NEB SCH ×4 (08:28→20:00)
[2021-06-15] MEDS: PULMICORT NEB TX 0.5 MG NEB SCH ×2 (08:28→20:00)
[2021-06-15] MEDS: ROCEPHIN VIAL 1 GRAM 1 G in NS 100 ML IV + SPIKE MINIBAG* 100 ML IV SCH (09:51)
[2021-06-15] MEDS: NORVASC TAB 5 MG PO SCH (09:51)
[2021-06-15] MEDS: NexIUM PO SCH ×2 (09:51→20:45)
[2021-06-15] MEDS: TOPROL XL PO SCH (09:53)
[2021-06-15] MEDS: WELLBUTRIN XL 300 MG (DAILY) PO SCH (09:53)
[2021-06-15] MEDS ORDERED: SALINE 3% 15 ML NEB TX ONE (19:26)
[2021-06-15] MEDS ORDERED: SALINE 3% 15 ML NEB TX NEB ONE (19:30)
[2021-06-15 20:36] VITALS: BP 137/64
[2021-06-15] MEDS: INVANZ INJ 1 GM VIAL 0.5 GM in NS 50 ML IV 50 ML IV SCH (20:44)
== END 2021-06-15 21:50 | disposition short-term general hospital (02) | DRG 194 ==
LOC: MED/SURG 14:40 → ER 14:40 → OBSVTOIN 18:50 → OBS 18:51 → MED/SURG 19:36
PROVIDERS: ADMIT Internal Medicine; ATTEND Internal Medicine
DX: N18.9 Chronic kidney disease, unspecified; D64.89 Other specified anemias; I12.9 Hypertensive chronic kidney disease with stage 1 through stage 4 chronic kidney disease, or unspecified chronic kidney disease; R06.02 Shortness of breath; K21.9 Gastro-esophageal reflux disease without esophagitis; F41.8 Other specified anxiety disorders; C90.00 Multiple myeloma not having achieved remission; N17.8 Other acute kidney failure; D61.818 Other pancytopenia; J18.8 Other pneumonia, unspecified organism; Z20.822 Contact with and (suspected) exposure to COVID-19